=== PATIENT | female | born 1955 | race Two or more races ===

== ENCOUNTER 2016-08-16 18:44 | Emergency (ER) | payer OTHER, MEDICARE ==
--- NOTE | ~2016-08-16 | ER ---
PATIENT'S NAME: SAMMI [facility] AGE: 61 Y [address] ROOM: [place] [address] LOCATION: ED ADMIT DATE: 08/16/2016 ER/Outpatient Report DISCHARGE DATE: 08/16/2016 FAMILY PHYSICIAN: Henrique Alanis MD ATTENDING PHYSICIAN: Dmitry Younger Time of Arrival: 1847 hours. Time of Evaluation: 1855 hours. CHIEF COMPLAINT: Fever and cough. HISTORY OF PRESENT ILLNESS: The patient states she was feeling fine this morning, went to dialysis at [facility] as scheduled, and then about an hour and half ago, she developed fever. States she is extremely tired. She has had a runny nose and productive cough of clear phlegm. Denies having any chest pain. Has not had any nausea; has not vomited. ALLERGIES: CODEINE. CURRENT MEDICATIONS: On the chart and reviewed by me. PAST MEDICAL HISTORY: Insulin-dependent diabetes, hypertension, chronic kidney failure, hyperlipidemia, and GERD. PAST SURGERIES: Right and left arm fistulas, x5, and colonoscopy. SOCIAL HISTORY: She lives at home with her . Denies use of tobacco, drugs, or alcohol. REVIEW OF SYSTEMS: All negative other than those mentioned in the HPI. PHYSICAL EXAMINATION: VITAL SIGNS: She weighed 80 kg. Blood pressure was 178/62; pulse of 86; respirations 20; temperature of 100.3, tympanic; and O2 saturation was 92% on room air. GENERAL: She is awake, alert, and oriented x4. SKIN: [place], warm, and dry. HEENT: TMs are dull. Nasal is boggy. Oropharynx is clear posteriorly. PATIENT'S NAME: SAMMI [facility] Ying [facility] AGE: 61 Y [address] ROOM: [place] [address] LOCATION: [facility] ADMIT DATE: 08/16/2016 ER/Outpatient Report DISCHARGE DATE: 08/16/2016 FAMILY PHYSICIAN: Henrique Alanis MD ATTENDING PHYSICIAN: Dmitry Younger NECK: Supple. No lymphadenopathy. RESPIRATIONS: Even and nonlabored. Lung sounds are clear throughout. HEART: Regular rate and rhythm. ABDOMEN: Soft, nondistended. Bowel sounds are present. LABORATORY DATA: Lab work was drawn. CBC is within normal limits. Chem panel: Sodium is 136, potassium is 3.8, chloride is 92, with chronic liver failure. Her BUN is 31 with a creatinine of 5.5, which looks about where she has been recently. Lactate was 2.8. Influenza A and B are negative. Chest x-ray shows no acute infiltrates. IMPRESSION: Viral upper respiratory illness. PLAN: Home, rest, fluids. Tylenol as needed for fever. We did give her a dose of Tylenol 1000 mg prior to discharge. Her temperature had come down to 99.3, tympanic. She is to contact her primary provider if symptoms persist. She verbalized understanding. NISA HUNG APRN FOR MD TORRIE RIGGS/patricia /[id number] d: 08/17/166 t: 08/17/16 1822, OUTPATIENT REPORT
[~2016-08-16 18:44] MED LIST: ALLEGRA180 MG PO; ASPIRIN325 MG PO; AUGMENTIN500 MG PO; CIPRO500 MG PO; CITRACAL+D(315M1 TAB PO; COLACE100 MG PO; COLESTID1 GM PO; COLESTIPOL HCL1 GM PO; COREG12.5 MG PO; FISH OIL 1,2001 EACH PO; FLONASE 50 MCG/16 GM NOSE; FLORASTOR250 MG PO; GLUCAGON EMERGEN1 MG SUB-Q; GLUCOSE4 GM PO; HYDROCODON-ACE1 EAC4 PO; IMODIUM2 MG PO; KIONEX15 GM/60 M PO; LEVEMIR FL100 UNIT/1 SUB-Q; LIPITOR40 MG PO; NITROSTAT0.4 MG SL; NORVASC10 MG PO; NOVOLOG100 UNIT/M SUB-Q; OXYGEN M-15 INH; PHOSLO667 MG PO; RENVELA800 MG PO; TRULICITY0.75 MG/0. SUB-Q; TUMS REGULAR ST1 TAB PO; TYLENOL325 MG PO; VITAMIN D35000 UNI1 PO; VITAMIN D350000 UNIT PO; XANAX0.25 MG PO; ZANTAC (NON-FO150 MG PO; ZESTRIL40 MG PO
[2016-08-16 19:16] LABS: BASOPHIL # 0.1 K/uL (0.0-0.2); BASOPHIL % 0.8 %; EOSINOPHIL # 0.2 K/uL (0.0-0.5); EOSINOPHIL % 3.3 %; HEMATOCRIT 29.9 % (33.0-46.0); HEMOGLOBIN 9.9 g/dL (10.0-15.0); IMMATURE GRANULOCYTE % 0.3 %; LYMPHOCYTE # 0.8 K/uL (0.8-4.0); MCH 31.6 pg (27.0-34.0); MCHC 33.1 gm/dL (32.0-36.5); MCV 95.5 fl (83.0-98.0); MONOCYTE # 0.7 K/uL (0.0-1.0); MONOCYTE % 11.7 %; MPV 8.8 fl (9.4-12.4); NEUTROPHIL # (ANC) 4.3 K/uL (1.8-7.8); NEUTROPHIL % 70.9 %; NRBC % 0 /100WBC (0-0.00); PLATELET COUNT 229 K/uL (150-450); RBC 3.13 M/uL (3.50-5.50); RDW-CV 16.5 % (11.9-14.6); WBC 6.1 K/uL (4.0-11.0)
[2016-08-16 19:37] LABS: ANION GAP 14.8 (10.0-19.0); CALCIUM 7.8 mg/dL (8.5-10.5); POTASSIUM 3.8 mMol/L (3.7-5.1); TOTAL PROTEIN 7.5 g/dL (6.0-8.4)
[2016-08-16 19:38] LABS: CREATININE 5.5 mg/dL (0.5-1.1); TOTAL BILIRUBIN 0.8 mg/dL (0.0-1.5)
[2016-09-01] MEDS ORDERED: TRULICITY0.75 MG/0. SUB-Q (15:00)
[2016-09-01] MEDS ORDERED: ALLEGRA180 MG PO (15:27)
[2016-09-01] MEDS ORDERED: KIONEX15 GM/60 M PO (15:40)
[2016-11-08] MEDS ORDERED: LEVAQUIN500 MG PO (13:40)
[2016-12-16] MEDS ORDERED: VIBERZI75 MG PO (08:08)
[2016-12-28] MEDS ORDERED: NORCO 5-325 TA1 EACH PO (15:42)
== END 2016-08-16 19:53 | disposition disaster alternative care site (69) ==
LOC: GMED 18:44
PROVIDERS: Emergency Medicine
DX: J06.9 Acute upper respiratory infection, unspecified (principal); E11.22 Type 2 diabetes mellitus with diabetic chronic kidney disease; I12.9 Hypertensive chronic kidney disease with stage 1 through stage 4 chronic kidney disease, or unspecified chronic kidney disease; N18.9 Chronic kidney disease, unspecified; E78.5 Hyperlipidemia, unspecified; K21.9 Gastro-esophageal reflux disease without esophagitis; Z98.890 Other specified postprocedural states

== ENCOUNTER → 2016-09-02 | Day surgery (SDC) | payer OTHER, MEDICARE ==
[~2016-09-02] VITALS: Ht 154.9 cm; Wt 81.5 kg
[~2016-09-02] MED LIST changes: +LEVAQUIN500 MG PO; +NORCO 5-325 TA1 EACH PO; +VIBERZI75 MG PO
--- NOTE | ~2016-09-02 | OR ---
PATIENT'S NAME: SAMMI [facility] AGE: 61 Y [address] ROOM: [place], [place] [address] [place] [facility] [place]: 09/02/2016 OR/Procedure Report DISCHARGE DATE: FAMILY PHYSICIAN: Henrique Alanis MD ATTENDING PHYSICIAN: LEELA NELSON SURGEON: Leela Nelson MD DIRECTOR OF KNOWLEDGE MANAGEMENT: DATE OF PROCEDURE: 09/02/2016 PREOPERATIVE DIAGNOSIS: End-stage renal disease. POSTOPERATIVE DIAGNOSIS: End-stage renal disease. PROCEDURE PERFORMED: Left arm brachiobasilic arteriovenous fistula superficialization. ANESTHESIA: General. ESTIMATED BLOOD LOSS: 10 mL. OPERATIVE FINDINGS: Good thrill and bruits remaining in the fistula. Strong radial and ulnar signals at the end of the case. DESCRIPTION OF PROCEDURE: The patient was brought to the operating room, placed supine on the operating table, and prepped and draped in the sterile manner. Preoperative time-out was performed. We used ultrasound guidance to give us an idea where the basilic vein was lying. We then made an incision along the entire length of the basilic tract. We then dissected down to the fascia, incised it, and then dissected out the basilic vein in a 360-degree fashion along the entire length of the incision. We ligated any side branches. We confirmed that there was still flow in the fistula with ligation of the side branches. We then reapproximated deep layers with 2-0 Vicryl, thereby forcing the basilic vein to the surface, and then we closed the skin with interrupted 4-0 nylons. The incision was covered with a Primapore dressing. The patient tolerated the procedure well and was transferred to the recovery room and then home later that day. LEELA NELSON MD FKM/modl PATIENT'S NAME: SAMMI [facility] AGE: 61 Y [address] ROOM: [place], [place] [address] [place] [facility] [place]: 09/02/2016 OR/Procedure Report DISCHARGE DATE: FAMILY PHYSICIAN: Henrique Alanis MD ATTENDING PHYSICIAN: LEELA NELSON /[id number] d: 09/02/161126 t: 09/03/161812, OPERATIVE SUMMARY
[2016-09-02 07:19] LABS: HEMATOCRIT 29.4 % (33.0-46.0); HEMOGLOBIN 9.8 g/dL (10.0-15.0); MCH 32.2 pg (27.0-34.0); MCHC 33.3 gm/dL (32.0-36.5); MCV 96.7 fl (83.0-98.0); MPV 9.4 fl (9.4-12.4); RBC 3.04 M/uL (3.50-5.50); RDW-CV 16.4 % (11.9-14.6)
[2016-09-02 07:34] LABS: ALBUMIN 2.9 gm/dL (3.5-5.0); TOTAL PROTEIN 8.3 g/dL (6.0-8.4)
[2016-09-02 07:38] LABS: ANION GAP 15.3 (10.0-19.0)
[2016-09-02 07:39] LABS: POTASSIUM 4.3 mMol/L (3.7-5.1)
[2016-09-02 07:40] LABS: PLATELET COUNT 253 K/uL (150-450)
[2016-09-02 07:43] LABS: ABSOLUTE NEUTROPHIL CT (ANC) 7.7 K/uL (1.8-7.8); BANDED NEUTROPHIL # 0.2 K/uL (0.0-0.1); BANDED NEUTROPHILS % 2 %; LYMPHOCYTE # 0.6 K/uL (0.8-4.0); LYMPHOCYTE % 6 %; MONOCYTE # 1.3 K/uL (0.0-1.0); SEGMENTED NEUTROPHIL # 7.5 K/uL (1.8-7.8); SEGMENTED NEUTROPHIL % 75 %
[2016-09-02 08:41] LABS: PCO2 45 mmHg (35-45)
[2016-09-02 08:42] LABS: BICARBONATE 31.5 mmol/L (18.0-23.0); PO2 30 mmHg (80-90); SODIUM 137 mEq/L (135-145)
--- NOTE | 2016-09-02 10:38 | NUR ---
Pt called at 1030 09/02/16. Pt had been dismissed from [facility] at 1010. Pt called and stated that her dressing was saturated and had continous bleeding. Instructed the patient to apply continous pressure at the site and to head over to Dr. Nelson's office. Dr. Nelson was notified as well as his office. Spoke to Rossy at Dr. Nelson's office and she stated they were expecting her.
== END ==
LOC: GPOC 09-01 09:00 → GSDC 05:52 → GPOC 07:30
PROVIDERS: Surgery Vascular Surgery
PROC: 05WY07Z Revision of Autologous Tissue Substitute in Upper Vein, Open Approach (ICD-10-PCS; principal; 2016-09-02)
DX: I12.0 Hypertensive chronic kidney disease with stage 5 chronic kidney disease or end stage renal disease (principal); N18.6 End stage renal disease; E11.9 Type 2 diabetes mellitus without complications; I73.9 Peripheral vascular disease, unspecified; E78.5 Hyperlipidemia, unspecified; F41.9 Anxiety disorder, unspecified; Z85.038 Personal history of other malignant neoplasm of large intestine; Z79.51 Long term (current) use of inhaled steroids; Z79.82 Long term (current) use of aspirin; Z79.899 Other long term (current) drug therapy; Z98.41 Cataract extraction status, right eye; Z98.42 Cataract extraction status, left eye; Z98.890 Other specified postprocedural states; Z90.49 Acquired absence of other specified parts of digestive tract
CPT/HCPCS: J0690; J2001; J2405; J7030

== ENCOUNTER 2016-09-11 18:14 | Emergency (ER) | payer OTHER, MEDICARE ==
--- NOTE | ~2016-09-11 | ER ---
PATIENT'S NAME: SAMMI [facility] Y[facility] AGE: 61 Y [address] ROOM: [place] [address] LOCATION: [facility] ADMIT DATE: 09/11/2016 ER/Outpatient Report DISCHARGE DATE: 09/11/2016 FAMILY PHYSICIAN: Henrique Alanis MD ATTENDING PHYSICIAN: Brandon Wong CHIEF COMPLAINT: Head and arm injury. HISTORY OF PRESENT ILLNESS: The patient was in a hotel Tuesday morning around 3:00 a.m. when she tripped over a suitcase while trying to go to the bathroom and she fell causing pain to both shoulders and she did hit her head. She has been doing okay, but finally got back to town and wanted to be evaluated. She denies any headaches, loss of consciousness, vision changes or unsteadiness; but is having quite a bit of pain in the shoulder region. She has taken some hydrocodone when she has plenty of and that has helped. PAST MEDICAL HISTORY: Documented on the record and reviewed by me. SOCIAL HISTORY: Documented on the record and reviewed by me. MEDICATIONS: Documented on the record and reviewed by me. ALLERGIES: DOCUMENTED ON THE RECORD AND REVIEWED BY ME. REVIEW OF SYSTEMS: All systems reviewed and negative except as noted in the HPI. PHYSICAL EXAMINATION: VITAL SIGNS: Blood pressure 177/80, pulse 82, respiratory rate 14, temp 97.8, SpO2 is 96% on room air. Pain is rated 10/10. GENERAL: Age appropriate female, in no obvious pain or distress. Resting comfortably on exam table. Conversing appropriately. NEURO: The patient is awake and alert. No focal deficits. No asymmetry on exam. GCS is 15. HEENT: Normocephalic, atraumatic except for some contusions to the forehead. Eyes are PERRL. Extraocular movements intact. Oropharynx is normal to inspection. No erythema or exudates. NECK: Supple. Trachea is midline. CHEST: Heart is regular rate and rhythm for age. No obvious abnormalities. PATIENT'S NAME: MARCELLO CHAPA [facility] AGE: 61 Y [address] ROOM: [place] [address] LOCATION: [facility] ADMIT DATE: 09/11/2016 ER/Outpatient Report DISCHARGE DATE: 09/11/2016 FAMILY PHYSICIAN: Henrique Alanis MD ATTENDING PHYSICIAN: Brandon Wong LUNGS: Clear to auscultation bilaterally. Chest wall is nontender to palpation. BACK: Nontender to palpation throughout. No CVA tenderness. ABDOMEN: Soft, nontender, and nondistended. No rebound or guarding. EXTREMITIES: Notable for some weakness with empty beer can testing, lateral abduction and internal rotation. The remainder of the exam is normal. No focal deficits, otherwise appreciated. Some slight tenderness in the left shoulder region and near her recent new fistula site, but no evidence of bleeding or pain. LABORATORY DATA AND X-RAYS: CT of the brain and plain films of the right shoulder were obtained. No obvious abnormalities per Radiology. IMPRESSION: 1. Fall. 2. Forehead contusion. 3. Possible rotator cuff injury of the right arm. EMERGENCY DEPARTMENT COURSE: The patient was seen and evaluated as above. I do not think that she has any fractures. No intracranial injuries are appreciated. She does not warrant hospitalization at this time. Pain is adequately controlled with home medication. We will give her sling for comfort. Have her follow up with her primary care physician early next week for reevaluation of the shoulder and to determine need for physical therapy versus orthopedic consult. All questions were answered and the patient was discharged in good condition. MD JEAN AHMADI/yaell /[id number] d: 09/12/16 0330 t: 09/22/16 0844, OUTPATIENT REPORT
[~2016-09-11 18:14] MED LIST changes: -LEVAQUIN500 MG PO; -NORCO 5-325 TA1 EACH PO; -VIBERZI75 MG PO
[2016-11-08] MEDS ORDERED: LEVAQUIN500 MG PO (13:40)
[2016-12-16] MEDS ORDERED: VIBERZI75 MG PO (08:08)
[2016-12-28] MEDS ORDERED: NORCO 5-325 TA1 EACH PO (15:42)
== END 2016-09-11 19:49 | disposition disaster alternative care site (69) ==
LOC: GACC 18:14
DX: S00.83XA Contusion of other part of head, initial encounter (principal); M25.512 Pain in left shoulder; W18.09XA Striking against other object with subsequent fall, initial encounter

== ENCOUNTER 2016-09-19 22:48 | Emergency (ER) | payer OTHER, MEDICARE ==
--- NOTE | ~2016-09-19 | ER ---
PATIENT'S NAME: SAMMI [facility] AGE: 61 Y [address] ROOM: [place] [address] LOCATION: [facility] ADMIT DATE: 09/19/2016 ER/Outpatient Report DISCHARGE DATE: 09/20/2016 FAMILY PHYSICIAN: Henrique Alanis MD ATTENDING PHYSICIAN: Dmitry Younger Admission date and time are documented on the medical record. I saw the patient at 2325 hours. CHIEF COMPLAINT: Nausea, vomiting, diarrhea, and fever. HISTORY OF PRESENT ILLNESS: This patient is a 61-year-old female who has known end-stage renal failure on hemodialysis developed nausea, vomiting, and diarrhea over the past 24 hours. Intermittent abdominal cramping. Temperature have been elevated. She has had some chills. No rigors. No blood in her vomitus or stool. No chest pain or shortness of breath. No lightheadedness, dizziness, syncope, or near syncope. No fall or trauma. No headache, eyes, ears, nose, throat, neck, or spine pain. No joint or muscle swelling, redness, or pain. No skin eruptions or rash. No neuro changes or psych issues. Does have insulin-dependent diabetes mellitus. HOME MEDICATIONS: See attached medication list. ALLERGIES: CODEINE. SOCIAL HISTORY: Nonsmoker, nondrinker. SIGNIFICANT PAST MEDICAL HISTORY: Atherosclerotic ischemic heart disease with coronary artery disease, hypertension, nocturnal hypoxia, O2 dependent, insulin-dependent diabetes mellitus, type 2, chronic kidney disease, end-stage renal failure, on hemodialysis, dyslipidemia, and gastroesophageal reflux. OPERATIONS: AV fistula placement in both arms, x5, colonoscopy, and hemodialysis. REVIEW OF SYSTEMS: All systems reviewed by me are negative with exception of those discussed in the history of present illness. PATIENT'S NAME: SAMMI MARCELLO [facility] AGE: 61 Y [address] ROOM: [place] [address] LOCATION: [facility] ADMIT DATE: 09/19/2016 ER/Outpatient Report DISCHARGE DATE: 09/20/2016 FAMILY PHYSICIAN: Henrique Alanis MD ATTENDING PHYSICIAN: Dmitry Younger PHYSICAL EXAMINATION: VITAL SIGNS: Temperature 99.8, tympanic, pulse 92, respirations 16, and O2 sat on room air is 99%. HEAD: Normocephalic. EYES, EARS, NOSE, THROAT: Clear. Mucous membranes moist. NECK: Negative. SPINE: Negative. LUNGS: Clear. No rales, rhonchi, or wheezes. HEART: Regular. Pulses are palpable. ABDOMEN: Soft. Some generalized tenderness. No true guarding or rigidity. No rebound tenderness. Bowel tones present. No organomegaly or abnormal mass palpable. No CVA tenderness. EXTREMITIES: Intact. NEUROVASCULAR: Intact. SKIN: Clear. LABORATORY DATA: CMS was normal except for a low CO2 content of 20, elevated anion gap of 21.1, elevated glucose 222, low calcium 8.4, elevated BUN of 66, elevated creatinine 8.8, and low GFR of 5. Amylase and lipase were normal. CRP was 5.40. CPK was 36. Ismyc-hd-cqtr cardiac enzymes were normal. Lactate was 1.8. Procalcitonin was 0.57. White count was 6500, 74 segs, 8 lymphs, 14 monos, 2 eos, 1 baso, hemoglobin is 8.4 with hematocrit 26.5, and platelet count is 325,000. Three way abdominal x-ray showed no perforation, obstruction, or acute lung infiltrate. We will review x-ray with the radiologist. EMERGENCY DEPARTMENT COURSE: I did give the patient some IV normal saline, gave her morphine for abdominal pain, and Zofran for nausea. IMPRESSION: 1. Nausea, vomiting, and diarrhea. 2. End-stage renal failure, on hemodialysis. 3. Insulin-dependent diabetes mellitus type 2. 4. Hypertension. 5. Coronary artery disease. 6. Dyslipidemia. PLAN: The patient dismissed home. Observation. Activity as tolerated. Continue home medications and care. Clear liquid diet for 24 hours and advance diet as tolerated. Dialysis as scheduled. Lomotil as needed for diarrhea, Zofran as needed for nausea, vomiting. Follow up with personal physician as needed. Discussion ensued with the patient concerning my findings and recommendations, PATIENT'S NAME: MARCELLO CHAPA [facility] AGE: 61 Y [address] ROOM: [place], [place] [address] LOCATION: [facility] ADMIT DATE: 09/19/2016 ER/Outpatient Report DISCHARGE DATE: 09/20/2016 FAMILY PHYSICIAN: Henrique Alansi MD ATTENDING PHYSICIAN: Dmitry Younger she understands. She was unable to provide us with a stool sample for stool eval analysis. MD FLIP RIGGS/modl /[id number] d: 09/20/16 0158 t: 09/20/16 1825, OUTPATIENT REPORT
[2016-09-20 00:24] LABS: BASOPHIL # 0.1 K/uL (0.0-0.2); BASOPHIL % 1.1 %; EOSINOPHIL # 0.2 K/uL (0.0-0.5); EOSINOPHIL % 2.3 %; HEMATOCRIT 26.5 % (33.0-46.0); HEMOGLOBIN 8.4 g/dL (10.0-15.0); IMMATURE GRANULOCYTE % 0.3 %; LYMPHOCYTE # 0.5 K/uL (0.8-4.0); LYMPHOCYTE % 8.4 %; MCH 31.7 pg (27.0-34.0); MCHC 31.7 gm/dL (32.0-36.5); MONOCYTE # 0.9 K/uL (0.0-1.0); MONOCYTE % 13.8 %; MPV 8.7 fl (9.4-12.4); NEUTROPHIL # (ANC) 4.8 K/uL (1.8-7.8); NEUTROPHIL % 74.1 %; NRBC % 0.5 /100WBC (0-0.00); RBC 2.65 M/uL (3.50-5.50); WBC 6.5 K/uL (4.0-11.0)
[2016-09-20 00:26] LABS: PLATELET COUNT 325 K/uL (150-450)
[2016-09-20 00:42] LABS: ALBUMIN 2.7 gm/dL (3.5-5.0); ANION GAP 21.1 (10.0-19.0); CALCIUM 8.4 mg/dL (8.5-10.5); POTASSIUM 5.1 mMol/L (3.7-5.1); TOTAL PROTEIN 7.3 g/dL (6.0-8.4)
[2016-09-20 00:43] LABS: CREATININE 8.8 mg/dL (0.5-1.1); TOTAL BILIRUBIN 0.4 mg/dL (0.0-1.5)
[2016-09-20 00:45] LABS: CPK 36 IU/L (21-215)
[2016-11-08] MEDS ORDERED: LEVAQUIN500 MG PO (13:40)
[2016-12-16] MEDS ORDERED: VIBERZI75 MG PO (08:08)
[2016-12-28] MEDS ORDERED: NORCO 5-325 TA1 EACH PO (15:42)
== END 2016-09-20 01:15 | disposition disaster alternative care site (69) ==
LOC: GMED 22:48
PROVIDERS: Emergency Medicine
DX: R11.2 Nausea with vomiting, unspecified (principal); E11.22 Type 2 diabetes mellitus with diabetic chronic kidney disease; I12.0 Hypertensive chronic kidney disease with stage 5 chronic kidney disease or end stage renal disease; N18.6 End stage renal disease; E78.5 Hyperlipidemia, unspecified; I25.10 Atherosclerotic heart disease of native coronary artery without angina pectoris; K21.9 Gastro-esophageal reflux disease without esophagitis; Z99.2 Dependence on renal dialysis
CPT/HCPCS: J2270; J2405; J7030

== ENCOUNTER → 2016-11-11 | Day surgery (SDC) | payer MEDICARE, OTHER ==
[~2016-11-11] VITALS: Ht 154.9 cm; Wt 83.1 kg
[~2016-11-11] MED LIST changes: +LEVAQUIN500 MG PO; +NORCO 5-325 TA1 EACH PO; +VIBERZI75 MG PO
--- NOTE | ~2016-11-11 | OR ---
PATIENT'S NAME: SAMMI [facility] AGE: 61 Y [address] ROOM: [place] [address] [place] [facility] [place] ADMIT DATE: 11/11/2016 OR/Procedure Report DISCHARGE DATE: FAMILY PHYSICIAN: Henrique Alanis MD ATTENDING PHYSICIAN: JOSÉ MIGUEL NELSON SURGEON: José Miguel Nelson MD CERTIFIED FORKLIFT OPERATOR: DATE OF PROCEDURE: 11/11/2016 PREOPERATIVE DIAGNOSIS: Fistula of right arm no longer required. POSTOPERATIVE DIAGNOSIS: Fistula of right arm no longer required. PROCEDURE: Ligation of right arm fistula. BONDED STRAND OPERATOR: SHEFALI Cuellar. ANESTHESIA: General. ESTIMATED BLOOD LOSS: 10 mL. OPERATIVE FINDINGS: No further flow in the right arm brachiocephalic fistula, which was aneurysmal. DESCRIPTION OF PROCEDURE: The patient was brought to the operating room, placed supine on the operating table, placed under general anesthesia, prepped and draped in a sterile manner. Preoperative time-out was performed. The patient received preoperative antibiotics. We made an incision 2 cm proximal to the antecubital fossa, dissected down the fascia, incised the fascia, dissected out the cephalic outflow vein tract stenosis in a 360-degree fashion. We then were able to get 0 Prolene tie around which we suture ligated the cephalic vein. We then made a counter incision more proximally on the arm, dissected down from the outflow vein tract, compressed the vein and then suture ligated this as well right decompressing the fistula. The deep layers were closed with 2-0 and 3-0 Vicryl. Skin was closed with running 4-0 Monocryl. The arm was wrapped and placed in a compression dressing with Oswaldo wrap. The patient tolerated the procedure well, transferred to the recovery room, and then home later that day. JOSÉ MIGUEL NELSON MD PATIENT'S NAME: SAMMI [facility] AGE: 61 Y [address] ROOM: [place] [address] [place] [facility] [place] ADMIT DATE: 11/11/2016 OR/Procedure Report DISCHARGE DATE: FAMILY PHYSICIAN: Henrique Alanis MD ATTENDING PHYSICIAN: JOSÉ MIGUEL NELSON FKM/modl /[id number] d: 11/11/166 t: 11/12/16 1254, OPERATIVE SUMMARY
[2016-11-11 11:34] LABS: BASOPHIL % 0.8 %; EOSINOPHIL # 0.2 K/uL (0.0-0.5); EOSINOPHIL % 2.9 %; HEMOGLOBIN 11.1 g/dL (10.0-15.0); IMMATURE GRANULOCYTE % 0.4 %; LYMPHOCYTE # 0.5 K/uL (0.8-4.0); MCV 99.4 fl (83.0-98.0); MONOCYTE # 0.7 K/uL (0.0-1.0); MONOCYTE % 13.1 %; MPV 9.3 fl (9.4-12.4); NEUTROPHIL # (ANC) 3.8 K/uL (1.8-7.8); NEUTROPHIL % 72.8 %; NRBC % 0 /100WBC (0-0.00); RDW-CV 18.6 % (11.9-14.6); WBC 5.2 K/uL (4.0-11.0)
[2016-11-11 11:35] LABS: HEMATOCRIT 35.2 % (33.0-46.0); MCH 31.4 pg (27.0-34.0); MCHC 31.5 gm/dL (32.0-36.5); PLATELET COUNT 162 K/uL (150-450); RBC 3.54 M/uL (3.50-5.50)
[2016-11-11 11:52] LABS: ALBUMIN 3.1 gm/dL (3.5-5.0); ANION GAP 18.2 (10.0-19.0); CALCIUM 8.6 mg/dL (8.5-10.5); POTASSIUM 5.2 mMol/L (3.7-5.1); TOTAL PROTEIN 7.3 g/dL (6.0-8.4)
[2016-11-11 11:56] LABS: CREATININE 6.4 mg/dL (0.5-1.1); TOTAL BILIRUBIN 0.9 mg/dL (0.0-1.5)
--- NOTE | 2016-11-11 13:09 | NUR ---
REPORTS FEELING DIZZY AND THAT ROOM IS SPINNING. DENIES NAUSEA. RESTING
== END | disposition disaster alternative care site (69) ==
LOC: GPOC 11-08 14:00 → GSDC 09:00
PROVIDERS: Surgery Vascular Surgery
PROC: 03LY0ZZ Occlusion of Upper Artery, Open Approach (ICD-10-PCS; principal; 2016-11-11)
DX: I77.0 Arteriovenous fistula, acquired (principal); E11.22 Type 2 diabetes mellitus with diabetic chronic kidney disease; I12.0 Hypertensive chronic kidney disease with stage 5 chronic kidney disease or end stage renal disease; N18.6 End stage renal disease; G47.33 Obstructive sleep apnea (adult) (pediatric); Z85.028 Personal history of other malignant neoplasm of stomach; Z88.5 Allergy status to narcotic agent
CPT/HCPCS: J0690; J2001; J3010; J7030

== ENCOUNTER 2016-11-12 06:11 | Emergency (ER) | payer OTHER, MEDICARE ==
--- NOTE | ~2016-11-12 | ER ---
PATIENT'S NAME: SAMMI [facility] AGE: 61 Y [address] ROOM: [place] [address] LOCATION: ED ADMIT DATE: 11/12/2016 ER/Outpatient Report DISCHARGE DATE: 11/12/2016 FAMILY PHYSICIAN: Henrique Alanis MD ATTENDING PHYSICIAN: Brandon Eldridge CHIEF COMPLAINT: General malaise and vomiting. HISTORY OF PRESENT ILLNESS: The patient states that ever since she woke up from surgery yesterday with Dr. Nelson for fistula excision of the right arm, she has had some nausea and vomiting. She did feel quite a bit better last evening, however, when she woke up this morning to go into dialysis, she felt poorly again. She thought it is better to come and get checked out before she went to dialysis. She is currently missing dialysis for same. No other acute concerns or issues at this time. Denies any fevers, chills, headache, vision changes, chest discomfort, chest pain, constipation, or diarrhea. PAST MEDICAL HISTORY: Documented on the record and reviewed by me. SOCIAL HISTORY: Documented on the record and reviewed by me. MEDICATIONS: Documented on the record and reviewed by me. ALLERGIES: DOCUMENTED ON THE RECORD AND REVIEWED BY ME. REVIEW OF SYSTEMS: All systems reviewed and negative except as noted in the HPI. PHYSICAL EXAMINATION: VITAL SIGNS: Blood pressure 149/65, pulse 67, respiratory rate 16, temperature 96.3, and SpO2 is 97% on room air. Pain is 0. GENERAL: Age appropriate female, in no obvious pain or distress, recumbent on the exam table. Obviously does not feel well. NEUROLOGIC: Awake and alert. GCS 15. No focal deficits. No asymmetry. Eyes without nystagmus. No skew. Head impulse is normal. No obvious coordination issues. Normal gait. HEENT: Normocephalic and atraumatic. Eyes are PERRL. Oropharynx is clear. NECK: Supple. Trachea is midline. CHEST: Heart has regular rate and rhythm with no murmurs. Lungs are clear to PATIENT'S NAME: SAMMI [facility] AGE: 61 Y [address] ROOM: [place] [address] LOCATION: [facility] ADMIT DATE: 11/12/2016 ER/Outpatient Report DISCHARGE DATE: 11/12/2016 FAMILY PHYSICIAN: Henrique Alanis MD ATTENDING PHYSICIAN: Brandon Eldridge auscultation bilaterally with no rhonchi, wheezes, or rales. ABDOMEN: Soft, nontender, and nondistended. No rebound or guarding. BACK: Back is normal inspection and palpation. EXTREMITIES: Warm and well perfused. No obvious abnormalities. Right upper extremity with surgical compression bandage in place, not removed. SKIN: Otherwise intact. LABORATORY DATA AND X-RAYS: None. IMPRESSION: Postoperative nausea and vomiting. EMERGENCY DEPARTMENT COURSE: The patient was seen and evaluated. She was given Zofran with some improvement in her symptoms. I believe her current presentation is most related to anesthesia. As she is a dialysis patient, I feel it is in her best interest to go have dialysis and see how she feels and to return to the emergency department at that time if she continues to feel poorly. She agrees with that assessment and will go to dialysis. They did call Dialysis and they will work her in. All questions were answered. The patient was discharged. BRANDON ELDRIDGE MD JH/modl /[id number] d: 11/12/161948 t: 11/13/16 0813, OUTPATIENT REPORT
[~2016-11-12 06:11] MED LIST changes: -NORCO 5-325 TA1 EACH PO; -VIBERZI75 MG PO
[2016-12-16] MEDS ORDERED: VIBERZI75 MG PO (08:08)
[2016-12-28] MEDS ORDERED: NORCO 5-325 TA1 EACH PO (15:42)
== END 2016-11-12 06:50 | disposition disaster alternative care site (69) ==
LOC: GMED 06:11
DX: T82.898A Other specified complication of vascular prosthetic devices, implants and grafts, initial encounter (principal); R11.2 Nausea with vomiting, unspecified; K21.9 Gastro-esophageal reflux disease without esophagitis; E03.9 Hypothyroidism, unspecified; I12.0 Hypertensive chronic kidney disease with stage 5 chronic kidney disease or end stage renal disease; E11.22 Type 2 diabetes mellitus with diabetic chronic kidney disease; N18.6 End stage renal disease; Z99.2 Dependence on renal dialysis

== ENCOUNTER → 2016-12-16 | Day surgery (SDC) | payer MEDICARE, OTHER ==
[~2016-12-16] VITALS: Ht 154.9 cm; Wt 78.6 kg
[~2016-12-16] MED LIST changes: +NORCO 5-325 TA1 EACH PO; +VIBERZI75 MG PO
--- NOTE | ~2016-12-16 | OR ---
PATIENT'S NAME: MARCELLO CHAPA [facility] AGE: 61 Y [address] ROOM: [place] [address] LOCATION: [facility] [place] ADMIT DATE: 12/16/2016 OR/Procedure Report DISCHARGE DATE: FAMILY PHYSICIAN: Henrique Alanis MD ATTENDING PHYSICIAN: LEELA GAO SURGEON: Leela Gao MD MANAGER CLINICAL APPLICATIONS: DATE OF PROCEDURE: 12/16/2016 PREOPERATIVE DIAGNOSIS: Fistula, previously ligated, then reopened. PROCEDURE: Re-ligation of AV fistula, right arm. MEDICAL RESEARCH SCIENTIST: OR staff. ANESTHESIA: General. ESTIMATED BLOOD LOSS: 10 mL. OPERATIVE FINDINGS: Once again, no further flow within the fistula. DESCRIPTION OF PROCEDURE: The patient was brought to the operating room, placed supine on the operating table, prepped and draped in a sterile manner. Preoperative time-out was performed. The patient received preoperative antibiotics. We reopened the previous antecubital incision and dissected the patent brachiocephalic fistula in a 360-degree fashion. We then looped the outflow tract vein with 2 silk ties and ligated in 2 separate areas. We then suture ligated it with a single 2-0 Vicryl and then placed a large laparoscopic clip over the region. This is a large fistula with a lot of pressure and likely this is what forced the stitch open in the first place. We copiously irrigated the wound, then reapproximated the skin with interrupted nylon. The patient tolerated the procedure well and was transferred to recovery room and home later that day. LEELA GAO MD FKM/modl /[id number] d: 12/16/162233 t: 12/20/16 1029, OPERATIVE SUMMARY
[2016-12-16 08:12] LABS: BASOPHIL # 0.1 K/uL (0.0-0.2); BASOPHIL % 1.2 %; EOSINOPHIL # 0.2 K/uL (0.0-0.5); EOSINOPHIL % 2.9 %; HEMATOCRIT 40.4 % (33.0-46.0); IMMATURE GRANULOCYTE % 0.2 %; LYMPHOCYTE # 0.6 K/uL (0.8-4.0); LYMPHOCYTE % 12.3 %; MCHC 32.2 gm/dL (32.0-36.5); MCV 96.4 fl (83.0-98.0); MONOCYTE # 0.6 K/uL (0.0-1.0); MONOCYTE % 11.3 %; MPV 9.2 fl (9.4-12.4); NEUTROPHIL # (ANC) 3.7 K/uL (1.8-7.8); NEUTROPHIL % 72.1 %; NRBC % 0 /100WBC (0-0.00); PLATELET COUNT 233 K/uL (150-450); RBC 4.19 M/uL (3.50-5.50); RDW-CV 17.6 % (11.9-14.6); WBC 5.1 K/uL (4.0-11.0)
[2016-12-16 08:25] LABS: ALBUMIN 3.3 gm/dL (3.5-5.0); ANION GAP 15.5 (10.0-19.0); CALCIUM 8.5 mg/dL (8.5-10.5); POTASSIUM 4.5 mMol/L (3.7-5.1); TOTAL BILIRUBIN 0.8 mg/dL (0.0-1.5); TOTAL PROTEIN 8.1 g/dL (6.0-8.4)
[2016-12-16 08:44] LABS: CREATININE 6.3 mg/dL (0.5-1.1)
--- NOTE | 2016-12-16 12:04 | NUR ---
REPORT TO [facility] AT 7620
== END | disposition disaster alternative care site (69) ==
LOC: GPOC 12-10 10:00 → GSDC 07:30
PROVIDERS: Surgery Vascular Surgery
PROC: 03170ZD Bypass Right Brachial Artery to Upper Arm Vein, Open Approach (ICD-10-PCS; principal; 2016-12-16)
DX: N18.6 End stage renal disease (principal); E11.22 Type 2 diabetes mellitus with diabetic chronic kidney disease; I12.0 Hypertensive chronic kidney disease with stage 5 chronic kidney disease or end stage renal disease; F41.9 Anxiety disorder, unspecified; E78.00 Pure hypercholesterolemia, unspecified; G47.30 Sleep apnea, unspecified; D64.9 Anemia, unspecified; M19.90 Unspecified osteoarthritis, unspecified site; Z99.2 Dependence on renal dialysis; Z85.05 Personal history of malignant neoplasm of liver; Z85.038 Personal history of other malignant neoplasm of large intestine; Z98.42 Cataract extraction status, left eye; Z98.890 Other specified postprocedural states; Z79.899 Other long term (current) drug therapy; Z88.8 Allergy status to other drugs, medicaments and biological substances; Z79.82 Long term (current) use of aspirin; Z79.4 Long term (current) use of insulin
CPT/HCPCS: J0690; J2001; J2405; J2550; J3010; J7030

== ENCOUNTER 2016-12-18 23:34 | Emergency (ER) | payer MEDICARE, OTHER ==
--- NOTE | ~2016-12-18 | ER ---
PATIENT'S NAME: SAMMI [facility] AGE: 61 Y [address] ROOM: [place] [address] LOCATION: [facility] ADMIT DATE: 12/18/2016 ER/Outpatient Report DISCHARGE DATE: 12/19/2016 FAMILY PHYSICIAN: Henrique Alanis MD ATTENDING PHYSICIAN: Elinor Ibrahim Time of Arrival: 2334 hours. Time of Evaluation: 0016 hours. IDENTIFICATION: A 61-year-old female. CHIEF COMPLAINT: Fall with pain in her right arm. HISTORY OF PRESENT ILLNESS: The patient is a 61-year-old female, who tripped and fell early this morning landing on her right shoulder. She is complaining of pain in her right shoulder. Initially, denies any neck pain, but on palpation had some slight pain and she said she did have a little bit of pain there. She also states she struck her head and has a slight headache. She is not on any blood thinner, and she had no loss of consciousness. The patient just recently had surgery with Dr. Nelson for re-ligation of AV fistula, right arm. She says it has gotten smaller since that time. She has had no fever or chills. PAST MEDICAL HISTORY: ALLERGIES: TO CODEINE. CURRENT MEDICATIONS: 1. Fexofenadine 180 mg daily. 2. Fluticasone nasal spray 2 sprays to each nostril once daily. 3. Amlodipine 5 mg b.i.d. 4. Carvedilol 12.5 mg in the a.m. and 6.25 mg in the p.m. 5. Lisinopril 20 mg b.i.d. 6. Levemir 35 units at bedtime. 7. NovoLog FlexPen 2 units per carb. 8. Trulicity 1 time weekly. 9. Colestipol 1 g 3 times a week. 10. Fish oil 1200 mg daily. 11. Aspirin 325 mg daily. 12. Nitrostat p.r.n. 13. O2 at 2 L per nasal cannula. 14. Tums 2 tablets at bedtime. PATIENT'S NAME: SAMMI [facility] AGE: 61 Y [address] ROOM: [place] [address] LOCATION: [facility] ADMIT DATE: 12/18/2016 ER/Outpatient Report DISCHARGE DATE: 12/19/2016 FAMILY PHYSICIAN: Henrique Alanis MD ATTENDING PHYSICIAN: Elinor Ibrahim 15. Kionex 15 g per 60 mL, only taken when dialysis is missed. 16. Atorvastatin 40 mg at bedtime. 17. Calcium acetate 667 mg 4 capsules 3 times a day with meals. 18. Renvela 4 g packet daily. 19. Vitamin D 50,000 units once weekly. 20. Levofloxacin 500 mg every other day. MEDICAL PROBLEMS: Allergic rhinitis; hypertension; end-stage renal disease, on hemodialysis 3 times per week; diabetes mellitus, insulin requiring; hypertension; history of colon cancer, status post resection, chemo and radiation with mets to the liver, status post radiation and chemo; history of hyperkalemia; hyperphosphatemia; and hypocalcemia. FAMILY HISTORY: Father with diabetes and hypertension. Mother with Alzheimer's and diabetes. SOCIAL HISTORY: The patient lives here in [place]. She is disabled. Tobacco use, denies. Alcohol use, denies. Drug use, denies. REVIEW OF SYSTEMS: All systems reviewed and negative other than what is noted in the HPI. PHYSICAL EXAMINATION: VITAL SIGNS: Height 5 feet 1 inch, weight 80 kg. Blood pressure 135/67, pulse 81, respirations 20, temperature 98.1, and saturations 94% on room air. GENERAL: A 61-year-old female, in no acute distress. HEENT: Head: Normocephalic, atraumatic. Eyes: Pupils equal and reactive to light and accommodation. Extraocular movements intact. Nose: Mucosa pink. No lesions. Mouth: No lesions. Pharynx benign. NECK: Supple, no lymphadenopathy, but she is tender to palpation of her cervical spine. No nuchal rigidity. LUNGS: Clear to auscultation. Breath sounds are equal. HEART: Regular rate and rhythm. ABDOMEN: Soft, nondistended, nontender. SKIN: [place], warm, and dry. The patient has a right arm fistula, previously ligated, now with an incision which is clean, dry, and intact. The patient has an aneurysmal appearance to her fistula in the right upper extremity, no erythema, no drainage. EXTREMITIES: She has decreased range of motion of her right upper extremity at her shoulder secondary to pain. She is tender to palpation of her anterior shoulder, no palpable deformities. No tenderness of her clavicle. Lower extremity: The patient has an abrasion over her anterior knee. This was cleansed and dressed with triple antibiotic. She has no bony tenderness. PATIENT'S NAME: MARCELLO CHAPA [facility] AGE: 61 Y [address] ROOM: [place], [place] [address] LOCATION: [facility] ADMIT DATE: 12/18/2016 ER/Outpatient Report DISCHARGE DATE: 12/19/2016 FAMILY PHYSICIAN: Henrique Alanis MD ATTENDING PHYSICIAN: Elinor Ibrahim NEURO: No focal deficit. IMAGING DATA: X-ray of her right knee, no acute fracture or dislocation, pending Radiology over-read. X-ray of her right shoulder, no acute fracture or dislocation, pending Radiology over-read. CT scan of her head, no acute findings. CT scan of her cervical spine, no acute fractures. IMPRESSION AND PLAN: 1. Right shoulder injury, probable rotator cuff injury. Sling for comfort. Ice as needed. Tylenol as needed. She has hydrocodone in her home for pain, which she can use as needed. Follow up with Dr. Alanis next week. 2. Right knee abrasion. Wound care discussed. 3. Head injury. No acute loss of consciousness. Negative head CT. 4. Neck pain. CT negative. 5. End-stage renal disease, on dialysis. ELINOR IBRAHIM MD CAR/modl /[id number] d: 12/19/16722 t: 12/20/16 0310, OUTPATIENT REPORT
[~2016-12-18 23:34] MED LIST changes: -NORCO 5-325 TA1 EACH PO
[2016-12-28] MEDS ORDERED: NORCO 5-325 TA1 EACH PO (15:42)
== END 2016-12-19 01:38 ==
LOC: GACC 23:34
DX: S09.90XA Unspecified injury of head, initial encounter (principal); S80.211A Abrasion, right knee, initial encounter; S49.91XA Unspecified injury of right shoulder and upper arm, initial encounter; M54.2 Cervicalgia; I12.0 Hypertensive chronic kidney disease with stage 5 chronic kidney disease or end stage renal disease; N18.6 End stage renal disease; E11.22 Type 2 diabetes mellitus with diabetic chronic kidney disease; C78.7 Secondary malignant neoplasm of liver and intrahepatic bile duct; C18.9 Malignant neoplasm of colon, unspecified; Z99.2 Dependence on renal dialysis; Z86.39 Personal history of other endocrine, nutritional and metabolic disease; Z79.4 Long term (current) use of insulin; Z79.82 Long term (current) use of aspirin; Z98.890 Other specified postprocedural states; Z79.899 Other long term (current) drug therapy; Z88.5 Allergy status to narcotic agent; W01.0XXA Fall on same level from slipping, tripping and stumbling without subsequent striking against object, initial encounter

== ENCOUNTER → 2016-12-28 | Day surgery (SDC) | payer MEDICARE, OTHER ==
[~2016-12-28] VITALS: Ht 154.9 cm; Wt 79.0 kg
[~2016-12-28] MED LIST changes: +NORCO 5-325 TA1 EACH PO
--- NOTE | ~2016-12-28 | OR ---
PATIENT'S NAME: SAMMI [facility] AGE: 61 Y [address] 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 PROCEDURES PERFORMED: Resection and excision of AV fistula aneurysm. MACHINE WHITENER: OR Staff. ANESTHESIA: General. ESTIMATED BLOOD LOSS: 25 mL. OPERATIVE FINDINGS: Complete removal of the aneurysmal sac from the right arm. DESCRIPTION OF PROCEDURE: The patient was brought to the Operating Room, placed supine on the operating table, and placed under general anesthesia. She received preoperative antibiotics, and was prepped and draped in a sterile manner. A preoperative time-out was performed. We made a vertical incision over the thrombosed large AV fistula aneurysm, dissected the fistula in a 360- degree fashion, and ligated both distal and proximal ends with 2-0 Vicryl suture ligatures. We then excised the entire aneurysmal sac. The aneurysm was approximately 6 x 4 cm in size. We copiously irrigated the wound. We resected the excess skin from the arm. WOUND CLOSURE: We then reapproximated the deep layers with 2-0 and 3-0 Vicryl. The skin was closed with interrupted nylon. DISPOSITION: The patient tolerated the procedure well, and was transferred to the Recovery Room and home later that day. PATIENT'S NAME: SAMMI [facility] AGE: 61 Y [address] ROOM: [place] [address] LOCATION: [facility] ADMIT DATE: 12/28/2016 OR/Procedure Report DISCHARGE DATE: FAMILY PHYSICIAN: Henrique Alanis MD ATTENDING PHYSICIAN: JOSÉ MIGUEL NELSON MD FKM/yaell /[id number] d: 12/29/16 2316 t: 01/05/17 1543, OPERATIVE SUMMARY
== END ==
LOC: GPOC 12-24 11:00 → GSDC 11:00
PROC: 03WY07Z Revision of Autologous Tissue Substitute in Upper Artery, Open Approach (ICD-10-PCS; principal; 2016-12-28)
DX: T82.868A Thrombosis due to vascular prosthetic devices, implants and grafts, initial encounter (principal); M19.90 Unspecified osteoarthritis, unspecified site; F41.9 Anxiety disorder, unspecified; E78.00 Pure hypercholesterolemia, unspecified; E11.22 Type 2 diabetes mellitus with diabetic chronic kidney disease; I12.0 Hypertensive chronic kidney disease with stage 5 chronic kidney disease or end stage renal disease; N18.6 End stage renal disease; G47.30 Sleep apnea, unspecified; Z98.890 Other specified postprocedural states; Z98.42 Cataract extraction status, left eye; Z79.899 Other long term (current) drug therapy; Z79.82 Long term (current) use of aspirin; Z79.4 Long term (current) use of insulin; Z88.5 Allergy status to narcotic agent; Z91.018 Allergy to other foods
CPT/HCPCS: J0690; J2001; J2405; J3010; J7030

== ENCOUNTER → 2017-02-03 | Day surgery (SDC) | payer MEDICARE, OTHER ==
[~2017-02-03] VITALS: Ht 154.9 cm; Wt 77.7 kg
--- NOTE | ~2017-02-03 | OR ---
PATIENT'S NAME: SAMMI MARCELLO [facility] AGE: 61 Y [address] ROOM: [place] [address] LOCATION: [facility] [place] ADMIT DATE: 02/03/2017 OR/Procedure Report DISCHARGE DATE: FAMILY PHYSICIAN: Henrique Alanis MD ATTENDING PHYSICIAN: JOSÉ MIGUEL NELSON SURGEON: José Miguel Nelson MD ROLL CAPPER: DATE OF PROCEDURE: 02/03/2017 PREOPERATIVE DIAGNOSIS: Right arm brachial arteriovenous fistula aneurysm. POSTOPERATIVE DIAGNOSIS: Right arm brachial arteriovenous fistula aneurysm. PROCEDURE: Resection of aneurysmal sac and over-sewing of the brachial artery. ACCOUNTS PAYABLE REPRESENTATIVE: SHEFALI Cuellar. ANESTHESIA: General. ESTIMATED BLOOD LOSS: 10 mL. OPERATIVE FINDINGS: AV fistula stump aneurysm, which was resected with no further flow. DESCRIPTION OF PROCEDURE: The patient was brought to the operating room and placed supine on the table, prepped and draped in sterile manner. Preoperative time-out was performed. The patient received preoperative antibiotics. We used a tourniquet to achieve hemostasis of the arm. We then made an incision over the brachial AV fistula stump aneurysm. We then dissected out the remaining aneurysm sac in a 360-degree fashion. We then resected the aneurysm sac and then we over sewed the underlying brachial artery closing it primarily. There was no further flow into any dilated portion of the AV fistula. The wound was copiously irrigated. The wound was closed with deep layers in 2-0 and 3-0 Vicryl and skin was closed with running 4-0 Monocryl. The patient tolerated the procedure well and transferred to the recovery room and home later that day. JOSÉ MIGUEL NELSON MD FKM/modl PATIENT'S NAME: SAMMI MARCELLO [facility] AGE: 61 Y [address] ROOM: [place] [address] LOCATION: [facility] [place] ADMIT DATE: 02/03/2017 OR/Procedure Report DISCHARGE DATE: FAMILY PHYSICIAN: Henrique Alanis MD ATTENDING PHYSICIAN: JOSÉ MIGUEL NELSON /[id number] d: 02/03/172021 t: 02/06/17 1629, OPERATIVE SUMMARY
== END | disposition disaster alternative care site (69) ==
LOC: GPOC 01-28 15:00 → GSDC 07:32
PROC: 03L70ZZ Occlusion of Right Brachial Artery, Open Approach (ICD-10-PCS; principal; 2017-02-03)
DX: T82.898A Other specified complication of vascular prosthetic devices, implants and grafts, initial encounter (principal); I12.9 Hypertensive chronic kidney disease with stage 1 through stage 4 chronic kidney disease, or unspecified chronic kidney disease; E11.22 Type 2 diabetes mellitus with diabetic chronic kidney disease; N18.9 Chronic kidney disease, unspecified; M19.90 Unspecified osteoarthritis, unspecified site; E11.9 Type 2 diabetes mellitus without complications; F41.9 Anxiety disorder, unspecified; F40.240 Claustrophobia; F41.0 Panic disorder [episodic paroxysmal anxiety]; E78.00 Pure hypercholesterolemia, unspecified; I25.10 Atherosclerotic heart disease of native coronary artery without angina pectoris; E78.5 Hyperlipidemia, unspecified; I73.9 Peripheral vascular disease, unspecified; D64.9 Anemia, unspecified; G47.30 Sleep apnea, unspecified; Z99.2 Dependence on renal dialysis; Z85.038 Personal history of other malignant neoplasm of large intestine; Z98.41 Cataract extraction status, right eye; Z98.42 Cataract extraction status, left eye; Z98.890 Other specified postprocedural states; Z79.4 Long term (current) use of insulin; Z79.82 Long term (current) use of aspirin; Z79.899 Other long term (current) drug therapy; Z88.5 Allergy status to narcotic agent; Z91.018 Allergy to other foods
CPT/HCPCS: J0690; J1644; J2001; J2405; J2720; J3010; J7030

== ENCOUNTER → 2017-02-24 | Outpatient (CLI) | payer OTHER, MEDICARE ==
--- NOTE | ~2017-02-24 | ENPV ---
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 Bilateral vertebral arteries are antegrade. Procedure Type of Study: Cerebral:Carotid, Carotid Doppler Bilateral. Indications for Study:Dizziness. Additional Indications:Vision changes/seeing spots Appropriate Use Criteria:9 Allergies - Codiene. - Other:(Codeine). - Other:(broccoli and tomato). Patient Status:Routine. Study Location:[facility]. Technical Quality:Adequate visualization. Velocities are measured in cm/s ; Diameters are measured in cm Carotid Right Measurements Carotid Left Measurements + +--------+--------+ + + + +--------+ --------+ + + !Location !PSV !EDV !Angle !%Stenosis ! !Location !PSV ! EDV !Angle !%Stenosis ! + +--------+--------+ + + + +--------+ --------+ + + !Prox CCA !45 !6 !42 ! ! !Prox CCA !53 ! 12 !60 ! ! + +--------+--------+ + + + +--------+ --------+ + + !Dist CCA !57 !9 !60 ! ! !Dist CCA !67 ! 10 !60 ! ! + +--------+--------+ + + + +--------+ --------+ + + !Prox ICA !54 !10 !52 !1-39% ! !Prox ICA !73 ! 20 !60 !1-39% ! + +--------+--------+ + + + +--------+ --------+ + + !Dist ICA !70 !16 !52 ! ! !Dist ICA !73 ! 21 !60 ! ! + +--------+--------+ + + + +--------+ --------+ + + !Prox ECA !83 ! !60 ! ! !Prox ECA !76 ! !60 ! ! + +--------+--------+ + + + +--------+ --------+ + + !Vertebral !34 ! ! ! ! !Vertebral !38 ! ! ! ! + +--------+--------+ + + + +--------+ --------+ + + !Subclavian !111 ! ! ! ! !Subclavian !225 ! ! ! ! + +--------+--------+ + + + +--------+ --------+ + + - There is antegrade vertebral flow noted on the right side. - There is antegrade verte bral flow noted on the left side. - Add'l Measurements:ICAPSV/CCAPSV 1.56.ICAEDV/CCAEDV 2.48. - Add'l Measurements:ICAPS V/CCAPSV 1.39.ICAEDV/CCAEDV 1.74. Impressions Right Impression Tortuous common carotid artery. Left Impression Tortuous internal carotid artery. Signature dtt: LEELA GAO dtd: 02/24/17 0812 Physician Self Edit
== END | disposition disaster alternative care site (69) ==
LOC: GCAR 02-22 09:00
DX: R42 Dizziness and giddiness (principal); H43.399 Other vitreous opacities, unspecified eye; I65.23 Occlusion and stenosis of bilateral carotid arteries